=== PATIENT | female | born 1960 | race Caucasian/White ===

== ENCOUNTER 2018-01-13 05:32 | Day surgery (SDC) | payer OTHER ==
[~2018-01-13 05:32] MED LIST: CIPRO500 MG PO; DIOVAN HCT 1601 EAC1 PO
[2018-01-13] MEDS ORDERED: COLACE100 MG PO (08:18)
[2018-01-13] MEDS ORDERED: PERCOCET 5-3251 EACH PO (08:18)
== END 2018-01-13 12:45 | disposition home or self-care (01) ==
LOC: CIR.AMB 05:32
DX: K60.1 Chronic anal fissure (principal)